=== PATIENT | male | born 1940 | race Caucasian/White ===

== ENCOUNTER 2019-02-07 10:23 | Inpatient (IN) | payer MEDICARE, BC ==
[~2019-02-07] VITALS: Ht 175.3 cm; Wt 86.2 kg
[2019-02-07] MEDS ORDERED: ASPIRIN 81 MG TAB.CHEW PO ONE (10:30)
[2019-02-07 11:14] LABS: ALBUMIN 3.8 g/dL (3.4-5.0); ALBUMIN/GLOBULIN RATIO 1.2 (1.0-1.7); CALCIUM 10.4 mg/dL (8.5-10.1); CREATININE 1.4 mg/dL (0.7-1.3); GFR 49.1; MAGNESIUM 1.7 mg/dL (1.8-2.4); POTASSIUM 4.1 mmol/L (3.5-5.1); TOTAL BILIRUBIN 0.6 mg/dL (0.2-1.0); TOTAL PROTEIN 6.9 g/dL (6.4-8.2)
[2019-02-07 11:30] LABS: BASO # 0.2 x10^3/uL (0.0-0.2); BASO % 2 % (0-3); EOS # 0.3 x10^3/uL (0.0-0.7); EOS % 3 % (0-3); LYMPH # 1.7 x10^3/uL (1.0-4.8); LYMPH % 17 % (24-48); MEAN CORPUSCULAR HEMOGLOBIN 20 pg (25-35); MEAN CORPUSCULAR HGB CONC 31 g/dL (31-37); MEAN CORPUSCULAR VOLUME 64 fL (79-100); MONO # 1.5 x10^3/uL (0.0-1.1); MONO % 14 % (0-9); NEUT # 6.5 x10^3uL (1.8-7.7); NEUT % 64 % (31-73); PLATELET COUNT 339 x10^3/uL (140-400); RED BLOOD COUNT 7.54 x10^6/uL (4.30-5.70); RED CELL DISTRIBUTION WIDTH 19.7 % (11.5-14.5); WHITE BLOOD COUNT 10.2 x10^3/uL (4.0-11.0)
[2019-02-07] MEDS ORDERED: INDO25CA5 PO (11:48)
[2019-02-07] MEDS ORDERED: PRED-220 PO (11:48)
[2019-02-07] MEDS ORDERED: ALLO300T PO (11:48)
[2019-02-07] MEDS ORDERED: ASPI-630 PO (11:48)
[2019-02-07] MEDS ORDERED: LISI-334 PO (11:48)
[2019-02-07] MEDS ORDERED: CARV25TA2 PO (11:48)
--- NOTE | 2019-02-07 11:55 | RAD ---
Portable chest, 02/07/2019: HISTORY: Near syncope The heart size and pulmonary vascularity are normal. There is mild tortuosity of the thoracic aorta. No pulmonary infiltrate is seen. There is no evidence of pleural fluid. IMPRESSION: No acute cardiopulmonary abnormality is detected. Electronically signed by: Baldev Andre MD (02/07/2019 11:52 AM) [facility]
[2019-02-07 12:09] LABS: % ATYL 7 % (0-0); % BANDS 4 % (0-9); % BASOS 1 % (0-3); % EOS 4 % (0-5); % LYMPHS 19 % (24-48); % MONOS 9 % (0-10); % SEGS 56 % (35-66)
[2019-02-07 12:11] LABS: PLT ESTIMATE ADEQUATE (ADEQUATE)
[2019-02-07 12:12] LABS: POLYCHROMASIA SLIGHT
[2019-02-07 12:15] LABS: CLARITY,URINE CLEAR; COLOR,URINE YELLOW
[2019-02-07 12:16] LABS: BACTERIA,URINE 0 /HPF (0-FEW); BILIRUBIN,URINE NEG (NEG); GLUCOSE,URINE NEG (NEG); HYALINE CASTS, URINE FEW /HPF; NITRITE,URINE NEG (NEG); RBC,URINE OCC /HPF (0-2); SQUAMOUS EPITHELIAL CELL,UR OCC /LPF; UROBILINOGEN,URINE 0.2 mg/dL (0.2 mg/dL); WBC,URINE OCC /HPF (0-4)
[2019-02-07 12:19] LABS: HYPOCHROMIA MOD; OVALOCYTES MOD; POIKILOCYTOSIS MOD
[2019-02-07 12:20] LABS: ANISOCYTOSIS SLIGHT
[2019-02-07 12:21] LABS: MICROCYTOSIS MOD; TEAR DROP CELLS OCC
[2019-02-07] MEDS: IV NORMAL SALINE 1,000ML 1,000 ML IV SCH ×4 (12:23→23:38)
--- NOTE | 2019-02-07 12:23 | PHYS DOC ---
Past History Past Medical History: Diabetes, Hypertension, Hypothyroid, Other Additional Past Medical Histor: polycythemia Past Surgical History: No Surgical History Smoking: Non-smoker Alcohol Use: None Drug Use: None Adult General Chief Complaint Chief Complaint: NEAR SYCOPE HPI HPI Patient is a 78-year-old male presents with near-syncope. This happened this morning. Patient felt a generalized weakness, was lowered to the ground by his . No head injury. No chest pains. No previous history of this. No recent changes in medicines. No nausea or vomiting. Symptoms lasted approximately 5 minutes for the most intense and are getting better now symptoms were moderate to severe when they were most intense mild at the moment. No difficulty breathing. Patient is visiting family here in [place], coming from [place]. Denies any leg pain or swelling.[] Review of Systems Review of Systems Constitutional: Denies fever or chills [] Eyes: Denies change in visual acuity, redness, or eye pain [] HENT: Denies nasal congestion or sore throat [] Respiratory: Denies cough or shortness of breath [] Cardiovascular: No chest pain or palpitations[] GI: Denies abdominal pain, nausea, vomiting, bloody stools or diarrhea [] : Denies dysuria or hematuria [] Musculoskeletal: Denies back pain or joint pain [] Integument: Denies rash or skin lesions [] Neurologic: Denies headache, focal weakness or sensory changes [] Endocrine: Denies polyuria or polydipsia [] All other systems were reviewed and found to be within normal limits, except as documented in this note. Current Medications Current Medications Current Medications Medications (Trade) Dose Ordered Sig/[facility] Start Time Stop Time Status Last Admin Dose Admin Aspirin (Children'S Aspirin) 324 mg 1X ONCE 02/07/19 10:30 02/07/19 10:36 DC 02/07/19 10:40 324 MG Allergies Allergies Allergies Coded Allergies Type Severity Reaction Last Updated Verified No Known Drug Allergies 02/07/19 No Physical Exam Physical Exam Constitutional: Well developed, well nourished, no acute distress, non-toxic appearance. [] HENT: Normocephalic, atraumatic, bilateral external ears normal, oropharynx moist, no oral exudates, nose normal. [] Eyes: PERRLA, EOMI, conjunctiva normal, no discharge. [] Neck: Normal range of motion, no tenderness, supple, no stridor. [] Cardiovascular:Heart rate regular rhythm, no murmur [] Lungs & Thorax: Bilateral breath sounds clear to auscultation [] Abdomen: Bowel sounds normal, soft, no tenderness, no masses, no pulsatile ma sses. [] Skin: Warm, dry, no erythema, no rash. [] Back: No tenderness, no CVA tenderness. [] Extremities: No tenderness, no cyanosis, no clubbing, ROM intact, no edema. [] Neurologic: Alert and oriented X 3, normal motor function, normal sensory function, no focal deficits noted. [] Psychologic: Affect normal, judgement normal, mood normal. [] Current Patient Data Vital Signs Vital Signs Date Time Temp Pulse Resp B/P (MAP) Pulse Ox O2 Delivery O2 Flow Rate FiO2 02/07/19 10:30 67 18 100 Room Air Lab Results Laboratory Tests Test 02/07/19 10:36 02/07/19 11:12 Prothrombin Time 10.6 SEC (9.4-11.4) Prothrombin Time INR 1.1 (0.9-1.1) PTT 25 SEC (23-33) Sodium Level 139 mmol/L (136-145) Potassium Level 4.1 mmol/L (3.5-5.1) Chloride Level 105 mmol/L (98-107) Carbon Dioxide Level 26 mmol/L (21-32) Anion Gap 8 (6-14) Blood Urea Nitrogen 23 mg/dL (8-26) Creatinine 1.4 mg/dL (0.7-1.3) H Estimated GFR (Cockcroft-Gault) 49.1 BUN/Creatinine Ratio 16 (6-20) Glucose Level 123 mg/dL (70-99) H Calcium Level 10.4 mg/dL (8.5-10.1) H Magnesium Level 1.7 mg/dL (1.8-2.4) L Total Bilirubin 0.6 mg/dL (0.2-1.0) Aspartate Amino Transferase (AST) 21 U/L (15-37) Alanine Aminotransferase (ALT) 21 U/L (16-63) Alkaline Phosphatase 107 U/L (46-116) Troponin I Quantitative < 0.017 ng/mL (0-0.055) WF-Uji-G-Type Natriuretic Peptide 872 pg/mL (0-449) H Total Protein 6.9 g/dL (6.4-8.2) Albumin 3.8 g/dL (3.4-5.0) Albumin/Globulin Ratio 1.2 (1.0-1.7) Lipase 166 U/L (73-393) White Blood Count 10.2 x10^3/uL (4.0-11.0) Red Blood Count 7.54 x10^6/uL (4.30-5.70) H Hemoglobin 15.0 g/dL (13.0-17.5) Hematocrit 48.0 % (39.0-53.0) Mean Corpuscular Volume 64 fL (79-100) L Mean Corpuscular Hemoglobin 20 pg (25-35) L Mean Corpuscular Hemoglobin Concent 31 g/dL (31-37) Red Cell Distribution Width 19.7 % (11.5-14.5) H Platelet Count 339 x10^3/uL (140-400) Neutrophils (%) (Auto) 64 % (31-73) Lymphocytes (%) (Auto) 17 % (24-48) L Monocytes (%) (Auto) 14 % (0-9) H Eosinophils (%) (Auto) 3 % (0-3) Basophils (%) (Auto) 2 % (0-3) Neutrophils # (Auto) 6.5 x10^3uL (1.8-7.7) Lymphocytes # (Auto) 1.7 x10^3/uL (1.0-4.8) Monocytes # (Auto) 1.5 x10^3/uL (0.0-1.1) H Eosinophils # (Auto) 0.3 x10^3/uL (0.0-0.7) Basophils # (Auto) 0.2 x10^3/uL (0.0-0.2) Platelet Estimate Pending EKG EKG EKG shows an irregular rhythm, sinus with frequent PVCs, rate varies from the 40s to the 60s. QTc of 445 ms, axis -67, no ST elevations. No old EKG available for comparison. Interpreted by me at 1034[] Radiology/Procedures Radiology/Procedures Portable chest, 02/07/2019: HISTORY: Near syncope The heart size and pulmonary vascularity are normal. There is mild tortuosity of the thoracic aorta. No pulmonary infiltrate is seen. There is no evidence of pleural fluid. IMPRESSION: No acute cardiopulmonary abnormality is detected.[] Course & Med Decision Making Course & Med Decision Making Pertinent Labs and Imaging studies reviewed. (See chart for details) ED course: Patient arrived, was placed in bed, and tolerated exam well. He was placed in the cardiac tech and noted to have frequent PVCs. His heart rate was variable during these episodes. Due to the near syncope, concerned about rhythm disturbance and possibly the heart rate not needing his metabolic needs. Consultation was made with the hospitalist service for admission. He was admitted in improved condition. Medical decision making: As noted above concerned about the heart rate as the trigger for his near syncopal episode. There is no evidence of an ST elevation MO. No evidence of pneumonia or pneumothorax. Do not believe this to be a stroke syndrome given the global nature of the symptoms as well as the rapid improvement. Uncertain as to how much of this may be hydration related given his creatinine of 1.4 with no baseline for comparison.[] Dragon Disclaimer Dragon Disclaimer This electronic medical record was generated, in whole or in part, using a voice recognition dictation system. Departure Departure: Impression: Primary Impression: Near syncope Additional Impression: Renal insufficiency Disposition: ADMITTED INPATIENT Admitting Physician: Barron Lu Condition: IMPROVED Referrals: PCP,NO (PCP) Problem Qualifiers SONAL MCALLISTER DO Feb 07, 2019 12:23
[2019-02-07] MEDS ORDERED: ONDANSETRON PF 4 MG/2 ML VIAL. IV PRN (12:30)
[2019-02-07] MEDS ORDERED: ACETAMINOPHEN 325 MG TABLET PO PRN (12:30)
[2019-02-07 13:56] VITALS: BP 168/79
--- NOTE | 2019-02-07 14:51 | EKG ---
[address] [address] Test Date: 2019-02-07 Test Time: 10:33:47 Pat Name: GABE PAULINOPATRICKCristine Department: Room: Gender: M [employer]: : 1940 Requested By: SONAL MCALLISTER Order Number: [id number] Reading MD: Measurements Intervals [place] Rate: 62 P: NE: QRS: -67 QRSD: 158 T: 95 QT: 436 QTc: 445 Interpretive Statements IRREGULAR RHYTHM, NO P-WAVE FOUND VENTRICULAR PREMATURE COMPLEX(ES) ABNORMAL LEFT AXIS DEVIATION LEFT ANTERIOR FASCICULAR BLOCK NON SPECIFIC INTRAVENTRICULAR BLOCK QRS(T) CONTOUR ABNORMALITY CONSISTENT WITH ANTERIOR INFARCT POSSIBLY RECENT ABNORMAL ECG RI6.01 No previous ECG available for comparison
--- NOTE | 2019-02-07 15:09 | PDOC2 ---
CONSULT Date of Admission DATE: 02/07/19 TIME: 15:08 Reason for Consult: Near syncope Referring Physician: Dr. Lu Chief Complaint Near syncope Source: Chart review, Patient Problem List Problems Medical Problems: (1) Near syncope Status: Acute (2) Renal insufficiency Status: Acute History of Present Illness 78 y/o male from [place] who was visiting his daughter here was apparently playing with his grandkids in park earlier today when he had an episode of near syncope that resolved after he sat down. He denied any N/V/D, chest pain, dyspnea or palpitations. He denied any similar episodes in past. He has history of PVC's that is being treated with beta blockers. Past Medical History Hypertension Hypothyroidism DM-2 Polycythemia Past Surgical History: No pertinent history Family History: Hypertension Smoke: No ALCOHOL: none Drugs: None Current Medications Current Medications Aspirin (Children'S Aspirin) 324 mg 1X ONCE PO Last administered on 02/07/19at 10:40; Start 02/07/19 at 10:30; Stop 02/07/19 at 10:36; Status DC Ondansetron HCl (Zofran) 4 mg PRN Q4HRS PRN IV NAUSEA/VOMITING; Start 02/07/19 at 12:30; Stop 02/08/19 at 12:29 Sodium Chloride 1,000 ml @ 125 mls/hr Q8H IV Last administered on 02/07/19at 12:23; Start 02/07/19 at 12:23; Stop 02/08/19 at 12:22 Acetaminophen (Tylenol) 650 mg PRN Q4HRS PRN PO FEVER; Start 02/07/19 at 12:30; Stop 02/08/19 at 12:29 Active Scripts Active Reported Indomethacin 25 Mg Capsule 1 Cap PO PRN DAILY PRN Prednisone 10 Mg Tablet 10 Mg PO DAILY Aspirin 81 Mg Tab.chew 81 Mg PO DAILY Carvedilol 25 Mg Tablet 12.5 Mg PO DAILY Lisinopril 20 Mg Tablet 1 Tab PO DAILY Allopurinol 300 Mg Tablet 600 Mg PO DAILY Allergies: Coded Allergies: No Known Drug Allergies (Unverified , 02/07/19) PSYCHOLOGICAL ROS: No: Hallucinations Eyes: No: Loss of vision HEENT: No: Epistaxis Respiratory: No: Hemoptysis Cardiovascular: No: Chest Pain Gastrointestinal: No: Vomiting, Diarrhea Genitourinary: No: [place] Neurological: YES: Other (near syncope); No: Seizures Skin: No: Rash General: Alert, Oriented X3 HEENT: Atraumatic, PERRLA Lungs: Clear to auscultation Heart: Regular rate Abdomen: Soft, No tenderness Extremities: No edema Psych/Mental Status: Mood NL VITALS Vital Signs Date Time Temp Pulse Resp B/P (MAP) Pulse Ox O2 Delivery O2 Flow Rate FiO2 02/07/19 13:56 98.2 52 18 168/79 (108) 97 Room Air Labs Laboratory Tests Test 02/07/19 10:36 02/07/19 11:12 02/07/19 11:49 Prothrombin Time 10.6 SEC (9.4-11.4) Prothromb Time International Ratio 1.1 (0.9-1.1) Activated Partial Thromboplast Time 25 SEC (23-33) Sodium Level 139 mmol/L (136-145) Potassium Level 4.1 mmol/L (3.5-5.1) Chloride Level 105 mmol/L (98-107) Carbon Dioxide Level 26 mmol/L (21-32) Anion Gap 8 (6-14) Blood Urea Nitrogen 23 mg/dL (8-26) Creatinine 1.4 mg/dL (0.7-1.3) Estimated GFR (Cockcroft-Gault) 49.1 BUN/Creatinine Ratio 16 (6-20) Glucose Level 123 mg/dL (70-99) Calcium Level 10.4 mg/dL (8.5-10.1) Magnesium Level 1.7 mg/dL (1.8-2.4) Total Bilirubin 0.6 mg/dL (0.2-1.0) Aspartate Amino Transf (AST/SGOT) 21 U/L (15-37) Alanine Aminotransferase (ALT/SGPT) 21 U/L (16-63) Alkaline Phosphatase 107 U/L (46-116) Troponin I Quantitative < 0.017 ng/mL (0-0.055) LC-Orm-V-Type Natriuretic Peptide 872 pg/mL (0-449) Total Protein 6.9 g/dL (6.4-8.2) Albumin 3.8 g/dL (3.4-5.0) Albumin/Globulin Ratio 1.2 (1.0-1.7) Lipase 166 U/L (73-393) Thyroid Stimulating Hormone (TSH) 29.521 uIU/mL (0.358-3.740) White Blood Count 10.2 x10^3/uL (4.0-11.0) Red Blood Count 7.54 x10^6/uL (4.30-5.70) Hemoglobin 15.0 g/dL (13.0-17.5) Hematocrit 48.0 % (39.0-53.0) Mean Corpuscular Volume 64 fL (79-100) Mean Corpuscular Hemoglobin 20 pg (25-35) Mean Corpuscular Hemoglobin Concent 31 g/dL (31-37) Red Cell Distribution Width 19.7 % (11.5-14.5) Platelet Count 339 x10^3/uL (140-400) Neutrophils (%) (Auto) 64 % (31-73) Lymphocytes (%) (Auto) 17 % (24-48) Monocytes (%) (Auto) 14 % (0-9) Eosinophils (%) (Auto) 3 % (0-3) Basophils (%) (Auto) 2 % (0-3) Neutrophils # (Auto) 6.5 x10^3uL (1.8-7.7) Lymphocytes # (Auto) 1.7 x10^3/uL (1.0-4.8) Monocytes # (Auto) 1.5 x10^3/uL (0.0-1.1) Eosinophils # (Auto) 0.3 x10^3/uL (0.0-0.7) Basophils # (Auto) 0.2 x10^3/uL (0.0-0.2) Segmented Neutrophils % 56 % (35-66) Band Neutrophils % 4 % (0-9) Lymphocytes % 19 % (24-48) Atypical Lymphocytes % (Manual) 7 % (0-0) Monocytes % 9 % (0-10) Eosinophils % 4 % (0-5) Basophils % 1 % (0-3) Platelet Estimate Adequate (ADEQUATE) Large Platelets Few Giant Platelets Occ Polychromasia Slight Hypochromasia Mod Poikilocytosis Mod Anisocytosis Slight Microcytosis Mod Tear Drop Cells Occ Ovalocytes Mod Urine Collection Type Unknown Urine Color Yellow Urine Clarity Clear Urine pH 7.0 Urine Specific Thermal 1.015 Urine Protein 30 mg/dl (NEG-TRACE) Urine Glucose (UA) Neg mg/dL (NEG) Urine Ketones (Stick) Neg mg/dL (NEG) Urine Blood Neg (NEG) Urine Nitrite Neg (NEG) Urine Bilirubin Neg (NEG) Urine Urobilinogen Dipstick 0.2 mg/dL (0.2 mg/dL) Urine Leukocyte Esterase Neg (NEG) Urine RBC Occ /HPF (0-2) Urine WBC Occ /HPF (0-4) Urine Squamous Epithelial Cells Occ /LPF Urine Bacteria 0 /HPF (0-FEW) Urine Hyaline Casts Few /HPF Urine Mucus Slight /LPF Assessment/Plan 1. Near syncope: dehydration vs vasovagal. Tele showed sinus rhythm with PAC/PVC's. Check 2D echo to rule out any structural abnormalities. Plan event monitor as outpatient. 2. HTN: controlled 3. Hypothyroidism, Polycythemia: cont current treatment 4. PVC's: probably benign, on beta blockers 5. Mild acute renal insuff: prob from dehydration. Cont IVF Thank you for your consultation GRAYSON HERNANDEZ MD Feb 07, 2019 15:08
[2019-02-07 15:35] VITALS: BP 167/93
[2019-02-07 15:36] VITALS: BP 163/87
[2019-02-07 15:37] VITALS: BP 135/88
[2019-02-07] MEDS ORDERED: LEVO50TA5 PO (15:47)
[2019-02-07] MEDS ORDERED: INDOMETHACIN 25 MG CAPSULE PO PRN (17:00)
[2019-02-07 19:09] VITALS: BP 140/72
--- NOTE | 2019-02-07 19:31 | HP ---
ADMIT DATE: 02/07/2019 HISTORY OF PRESENT ILLNESS: The patient is a 78-year-old male patient, visiting his family here in [place], coming from [place], who apparently presented to Emergency Room with near syncope. Apparently, this happened this morning, the patient felt generalized weakness, was lowered to the ground by his . No head injury, no chest pain, no previous history of similar episode. He actually managed to walk all the way back to the apartment and then his daughter brought him, insisted that he come to the Emergency Room for further evaluation. Apparently, he had a similar episode and when he was evaluated by his primary care physician, he was diagnosed with polycythemia and hypothyroidism. PAST MEDICAL HISTORY: Significant for hypertension, hypothyroidism, osteoarthritis, gout and polycythemia vera. He is also known to have hypertension. PAST SURGICAL HISTORY: Significant for bilateral cataract extraction, carpal tunnel release and colonoscopy. ALLERGIES: He has no known drug allergies. MEDICATIONS: He is currently on following medications: He is on carvedilol 12.5 mg daily. He is on lisinopril 20 mg once a day, aspirin 81 mg once a day, indomethacin 25 mg as needed for acute gouty flareup. He is on prednisone 10 mg daily, allopurinol 300-600 mg daily. FAMILY HISTORY: He has one older brother and one brother who is younger but he does not know much about their health problems. His father at the age of 75 because of colon cancer and apparently had carotid stenosis. Mother at the age of 84 because of bladder cancer and emphysema. SOCIAL HISTORY: He is , has 3 daughters. He quit smoking 50 years ago. Does drink alcohol very occasionally. He does not use any drugs. He was in [employer] and then he was in [employer] service and retired in 2013. He plays golf and walks long distances without any walker or cane. REVIEW OF SYSTEMS: The patient denied any blurring of vision. He has bilateral cataract extraction, but denied any glaucoma or macular degeneration. Denied any earache, tinnitus or sensorineural deafness. Denied any nosebleeds, stuffy nose or postnasal drip. Denied any sore throat, sore tongue, toothache, hoarseness of voice or difficulty swallowing. Denied any nausea, vomiting, diarrhea or constipation. Denied any hematemesis, melena or hematochezia. Denied any dysuria, frequency or hematuria. Denied any chest pain, shortness of breath, orthopnea, or paroxysmal nocturnal dyspnea. Denied any cough, phlegm or hemoptysis. Did complain of dizziness and lightheadedness. PHYSICAL EXAMINATION: GENERAL: On arrival to the Emergency Room, he looked well and was clearly in no apparent respiratory distress. There is no pallor, jaundice, cyanosis, or thyromegaly. No jugular venous distension. No limb edema. VITAL SIGNS: Her heart rate was 52, blood pressure was 168/79, temperature was 98.2, respiratory rate was 18 and oxygen saturation was 97%. HEAD, EYES, EARS, NOSE AND THROAT: Normocephalic, atraumatic. NECK: Supple. HEART: Showed normal first and second heart sounds. No gallop, rub or murmur. CHEST: Clear to auscultation. No crepitations or rhonchi. ABDOMEN: Distended, soft, nontender. No guarding or rigidity. No organomegaly. All hernial orifice intact. Bowel sounds normal. NEUROLOGIC: He is awake, alert, responding appropriately. All cranial nerves intact. EXTREMITIES: He moves extremities without difficulty. LABORATORY DATA: His lab work on arrival showed a serum sodium was 139, potassium 4.1, chloride 105, bicarbonate 26, anion gap of 8, BUN 23, creatinine 1.4, estimated GFR was 49 mL per minute. His glucose was 123, calcium was 10.4, magnesium was 1.7. Total bilirubin, AST, ALT, alkaline phosphatase were normal. Beta natriuretic peptide was 872. Total protein was 6.9, albumin was 3.8, globulin was 1.2, lipase 166. TSH was 29.5. His white cell count was 10,000, hemoglobin 15, hematocrit 48, MCV 64 and platelet count of 339,000 with normal manual differential. His prothrombin time was 10.6, INR 1.1, aPTT was 25. Urinalysis showed the urine was yellow, clear with a pH of 7, specific gravity of 1.015. There was small amount of protein. The urine was negative for glucose, ketones, blood, nitrite and leukocyte esterase. There are occasional rbc's, occasional wbc's, and no bacteria. His chest x-ray showed the heart size and pulmonary vasculature are normal. There is mild tortuosity of the thoracic aorta, no pulmonary infiltrates are seen, and there is no evidence of pleural fluid. IMPRESSION: In summary, this is a 78-year-old male patient with a past medical history significant for hypertension, hypothyroidism, polycythemia, osteoarthritis and gout, who came with an episode of dizziness. PLAN: My plan is to check his orthostatics. Check also bilateral carotid Doppler ultrasound. We have already consulted the power shovel engineer. His TSH is elevated. Apparently, he was diagnosed recently and started on Synthroid at 50 mcg once a day. We will continue with that. KRYSTLE TERRAZAS MD DR: ILSA/elsie JOB#: [id number] / [id number]
[2019-02-07] MEDS ORDERED: MELATONIN 3 MG TABLET PO PRN (19:45)
[2019-02-07 23:04] VITALS: BP 139/84
[2019-02-08 05:37] VITALS: BP 138/68
[2019-02-08] MEDS ORDERED: LEVOTHYROXINE 50 MCG TABLET PO SCH (06:00)
[2019-02-08 06:36] LABS: BASO # 0.1 x10^3/uL (0.0-0.2); BASO % 1 % (0-3); EOS # 0.3 x10^3/uL (0.0-0.7); EOS % 3 % (0-3); HEMATOCRIT 45.3 % (39.0-53.0); HEMOGLOBIN 14.4 g/dL (13.0-17.5); LYMPH # 1.9 x10^3/uL (1.0-4.8); LYMPH % 23 % (24-48); MEAN CORPUSCULAR HEMOGLOBIN 20 pg (25-35); MEAN CORPUSCULAR HGB CONC 32 g/dL (31-37); MEAN CORPUSCULAR VOLUME 63 fL (79-100); MONO % 13 % (0-9); NEUT # 4.8 x10^3uL (1.8-7.7); NEUT % 60 % (31-73); PLATELET COUNT 267 x10^3/uL (140-400); RED BLOOD COUNT 7.23 x10^6/uL (4.30-5.70); RED CELL DISTRIBUTION WIDTH 19.8 % (11.5-14.5)
[2019-02-08 06:40] LABS: ALBUMIN 3.2 g/dL (3.4-5.0); ALBUMIN/GLOBULIN RATIO 1.2 (1.0-1.7); CALCIUM 9.6 mg/dL (8.5-10.1); CREATININE 1.1 mg/dL (0.7-1.3); GFR 64.9; POTASSIUM 4.1 mmol/L (3.5-5.1); TOTAL BILIRUBIN 0.7 mg/dL (0.2-1.0); TOTAL PROTEIN 5.9 g/dL (6.4-8.2)
--- NOTE | 2019-02-08 07:56 | RAD ---
Carotid ultrasound, 02/07/2019: HISTORY: Syncope, bradycardia Duplex evaluation of the carotid arteries and neck was performed including grayscale, color-flow and spectral Doppler analysis. There is minimal intimal thickening and smooth plaquing at the carotid bifurcations. The peak systolic velocity in the right internal carotid artery is 52 cm/s with an end-diastolic velocity of 14 cm/s and an internal carotid to common carotid artery ratio of less than 1. The peak systolic velocity in the left internal carotid artery is 56 cm/s with an end-diastolic velocity of 11 cm/s and an internal carotid to common carotid artery ratio 1.0. These Doppler findings do not suggest significant stenosis. Antegrade flow is present in both vertebral arteries in the neck. IMPRESSION: Minimal smooth plaquing at both carotid bifurcations with no duplex evidence of significant associated stenosis. Note: Stenosis calculations for CT, MRA and conventional angiography are based upon determination of the distal ICA diameter in accordance with the NASCET methodology. Stenosis calculations for Doppler studies are derived from validated velocity criteria which are known to correlate with NASCET methodology of determining stenosis. Electronically signed by: Baldev Andre MD (02/08/2019 7:53 AM) [facility]
[2019-02-08] MEDS ORDERED: CARVEDILOL 12.5 MG TABLET PO SCH (08:00)
[2019-02-08] MEDS ORDERED: ASPIRIN 81 MG TAB.CHEW PO SCH (08:00)
[2019-02-08] MEDS ORDERED: LISINOPRIL 20 MG TABLET PO SCH (09:00)
[2019-02-08] MEDS ORDERED: ALLOPURINOL 300 MG TABLET. PO SCH (09:00)
[2019-02-08] MEDS ORDERED: predniSONE 10 MG TABLET PO SCH (09:00)
[2019-02-08 10:56] VITALS: BP 130/69
[2019-02-08] MEDS: IV NORMAL SALINE 1,000ML 1,000 ML IV SCH (11:30)
--- NOTE | 2019-02-08 12:37 | CARD ---
MR#: [id number] Date of Study: 02/08/2019 Ordering Physician: GRAYSON HERNANDEZ, Referring Physician: KRYSTLE TERRAZAS Tech: Malgorzata Williamson [facility] APPROVED REPORT EXAM: Two-dimensional and M-mode echocardiogram with Doppler and color Doppler. Other Information Quality : AverageHR: 55bpm Rhythm : Bradycardia INDICATION Syncope 2D DIMENSIONS RVDd3.5 (2.9-3.5cm)Left Atrium(2D)3.7 (1.6-4.0cm) IVSd1.4 (0.7-1.1cm)Aortic Root(2D)3.6 (2.0-3.7cm) LVDd4.9 (3.9-5.9cm)LVOT Diameter2.4 (1.8-2.4cm) PWd1.0 (0.7-1.1cm)LVDs3.7 (2.5-4.0cm) FS (%) 23.9 %SV54.5 ml LVEF(%)45.0 (>50%) M-Mode DIMENSIONS Left Atrium(MM)3.62 (2.5-4.0cm)Aortic Root3.55 (2.2-3.7cm) Aortic Valve AoV Peak Mathieu.106.4cm/sAoV VTI23.1cm AO Peak GR.4.5mmHgAO Mean GR.3mmHg ZAKI (VMAX)2.54ci3QHP (VTI)2.59cm2 Mitral Valve MV E Qffrvpso66.9cm/sMV DECEL [id number] MV A Vdcxrngn26.1cm/sE/A Ratio0.9 MV A [id number] LEFT VENTRICLE The left ventricle is normal size. Proximal septal thickening is noted. The systolic function is mild to moderately impaired. The Ejection Fraction is 40%. Septal motion is suggestive of conduction defe ct. Transmitral Doppler flow pattern is Grade I-abnormal relaxation pattern. RIGHT VENTRICLE The right ventricle is normal size. There is normal right ventricular wall thickness. The right ventr icular systolic function is normal. ATRIA The left atrium size is normal. The right atrium size is normal. The interatrial septum is intact wit h no evidence for an atrial septal defect or patent foramen ovale as noted on 2-D or Doppler imaging. AORTIC VALVE Not well visualized. Doppler and Color Flow revealed no significant aortic regurgitation. There is no significant aortic valvular stenosis. MITRAL VALVE The mitral valve is normal in structure and function. There is no evidence of mitral valve prolapse. There is no mitral valve stenosis. Doppler and Color-flow revealed trace mitral regurgitation. TRICUSPID VALVE The tricuspid valve is normal in structure and function. Doppler and Color Flow revealed no tricuspid valve regurgitation noted. There is no tricuspid valve prolapse or vegetation. There is no tricuspid valve stenosis. PULMONIC VALVE The pulmonic valve is not well visualized. GREAT VESSELS The aortic root is normal in size. The ascending aorta is normal in size. The IVC is normal in size a nd collapses >50% with inspiration. PERICARDIAL EFFUSION There is no evidence of significant pericardial effusion. Critical Notification Critical Value: No <Conclusion> The systolic function is mild to moderately impaired. The Ejection Fraction is 40%. Septal motion is suggestive of conduction defect. Signed by : Luis Alan, Electronically Approved : 02/08/2019 12:37:00
[2019-02-08 15:08] VITALS: BP 137/85
== END 2019-02-08 19:05 | disposition home or self-care (01) | DRG 640 ==
LOC: ER 10:23 → 1 SOUTH 12:15
PROVIDERS: ADMIT Internal Medicine; ATTEND Internal Medicine
DX: E86.0 Dehydration (principal); N17.0 Acute kidney failure with tubular necrosis; I49.3 Ventricular premature depolarization; D75.1 Secondary polycythemia; E03.9 Hypothyroidism, unspecified; M10.9 Gout, unspecified; R55 Syncope and collapse; E11.9 Type 2 diabetes mellitus without complications; M19.90 Unspecified osteoarthritis, unspecified site; I10 Essential (primary) hypertension; N28.9 Disorder of kidney and ureter, unspecified; Z80.0 Family history of malignant neoplasm of digestive organs; Z80.52 Family history of malignant neoplasm of bladder; Z82.49 Family history of ischemic heart disease and other diseases of the circulatory system; Z82.5 Family history of asthma and other chronic lower respiratory diseases; Z87.891 Personal history of nicotine dependence; Z98.41 Cataract extraction status, right eye; Z98.42 Cataract extraction status, left eye
CPT/HCPCS: 36415; 71045; 80053; 81001; 83690; 83735; 83880; 84443; 84484; 85007; 85025; 85610; 85730; 93005; 93306; 93880; J7512; 99285-25; J7030